=== PATIENT | female | born 1995 | race Caucasian/White ===

== ENCOUNTER 2019-07-10 18:12 | Emergency (ER) | payer MEDICAID ==
[2019-07-10 19:04] LABS: Influenza A Molecular POSITIVE (Negative)
--- NOTE | 2019-07-10 19:46 | ED ---
Influenza-Like Illness - HPI Summary HPI Summary: 24-year-old female with a past medical history presents to the emergency department today complaining of 5 days of fever, chills, nausea, vomiting, nasal congestion, cough. Patient states she has had decreased by mouth intake due to her symptoms the last 5 days. She denies recent travel outside the [facility]. Patient otherwise feels well and denies abdominal pain, rash, diarrhea. - History of Current Complaint Chief Complaint: EDFluSymptoms Time Seen by Provider: 07/10/19 19:27 Hx Obtained From: Patient Onset/Duration: Gradual Onset Severity: Moderate Associated Signs & Symptoms: Fever, Myalgia, Cough, Sore Throat, Nasal Congestion Related Hx: Possible Flu/Infectious Exposure - Allergy/Home Medications Allergies/Adverse Reactions: Allergies Allergy/AdvReac Type Severity Reaction Status Date / Time No Known Allergies Allergy Verified 07/10/19 18:39 Home Medications: Home Medications Acetaminophen [Acetaminophen Extra Strength] 500 mg PO BID PRN 04/12/18 [ History Confirmed 05/13/18] Levonorgestrel (Iud) [Mirena IUD] 04/12/18 [History] Biotin [Biotin Gummies] 1,000 mcg PO QPM 05/13/18 [History Confirmed 05/13/18] PMH/Surg Hx/FS Hx/Imm Hx Cardiovascular History: Reports: Hx Syncope - states she has "passed out" X2 in the past year Denies: Hx Pacemaker/ICD History: Reports: Hx Kidney Infection - 3 YEARS AGO, Other Problems/ Disorders - admitted for flank pain and dysuria Sensory History: Denies: Hx Contacts or Glasses, Hx Hearing Aid Opthamlomology History: Denies: Hx Contacts or Glasses Neurological History: Denies: Other Neuro Impairments/Disorders Psychiatric History: Reports: Hx Anxiety - HX OF, Hx Depression - HX OF Denies: Hx Eating Disorder, Hx of Violent Episodes Against Others - Surgical History Surgery Procedure, Year, and Place: bilateral ear tubes inserted at age 6. 2015 - Hx Anesthesia Reactions: No - Immunization History Date of Tetanus Vaccine: utd Date of Influenza Vaccine: unk Infectious Disease History: No Infectious Disease History: Denies: Traveled Outside the [place] in Last 30 Days - Social History Alcohol Use: Rare Alcohol Amount: social Substance Use Type: Reports: Marijuana Substance Use Comment - Amount & Last Used: pt reports last use > 1 month ago Smoking Status (MU): Light Every Day Tobacco Smoker Type: Cigarettes Amount Used/How Often: <1/2 PPD X 6 YEARS Have You Smoked in the Last Year: Yes Review of Systems Positive: Fever Eyes: Negative ENT: Negative Positive: Nasal Discharge Cardiovascular: Negative Positive: Cough Gastrointestinal: Negative Genitourinary: Negative Musculoskeletal: Negative Skin: Negative Neurological/Mental Status: Negative Psychological: Normal All Other Systems Reviewed And Are Negative: Yes Physical Exam Triage Information Reviewed: Yes Vital Signs On Initial Exam: Initial Vitals Temp Pulse Resp BP Pulse Ox 99 F 101 14 118/80 99 07/10/19 18:35 07/10/19 18:35 07/10/19 18:35 07/10/19 18:35 07/10/19 18:35 Vital Signs Reviewed: Yes Appearance: Positive: Well-Appearing, No Pain Distress, Well-Nourished Skin: Positive: Warm, Skin Color Reflects Adequate Perfusion Eyes: Positive: EOMI, DICKSON ENT: Positive: Hearing grossly normal Respiratory/Lung Sounds: Positive: Breath Sounds Present, Wheezes Cardiovascular: Positive: RRR, S1, S2 Abdomen Description: Positive: Nontender, Soft Bowel Sounds: Positive: Present Musculoskeletal: Positive: Strength/ROM Intact Neurological: Positive: Sensory/Motor Intact, Alert, Oriented to Person Place, Time, Normal Gait, Facial Symmetry, Speech Normal Psychiatric: Positive: Normal, Affect/Mood Appropriate AVPU Assessment: Alert Procedures - Sedation Patient Received Moderate/Deep Sedation with Procedure: No Diagnostics - Vital Signs Vital Signs Temp Pulse Resp BP Pulse Ox 07/10/19 18:35 99 F 101 14 118/80 99 - Laboratory Lab Results: Lab Results 07/10/19 Range/Units 18:40 Influenza A (Rapid) Positive H (Negative) Influenza B (Rapid) Not Reportable Result Diagrams: 07/10/19 20:03 07/10/19 20:03 Lab Statement: Any lab studies that have been ordered have been reviewed, and results considered in the medical decision making process. Flu Symptom Course/Dx - Course Course Of Treatment: Patient was evaluated in the emergency department today for a blood-like illness. Vitals noted. Patient given Tylenol for fever. Chest x-rays done that showed no evidence of pneumonia. Laboratory studies returned showing mild leukocytosis however there are no electrolyte abnormalities or evidence of anemia. Influenza serology positive for influenza A. Patient is outside window for Tamiflu treatment. Patient discharged with outpatient follow-up. - Diagnoses Differential Diagnosis/HQI/PQRI: Positive: Bronchitis, Influenza, Pneumonia, Upper Respiratory Infection Provider Diagnoses: Influenza A Discharge ED - Sign-Out/Discharge Documenting (check all that apply): Patient Departure - Discharge Plan Condition: Stable Disposition: HOME Patient Education Materials: Influenza (ED) Referrals: [facility] [Outside] - 3 Days No Primary Care Phys,NOPCP [Primary Care Provider] - Additional Instructions: You were seen in the emergency department today and diagnosed with influenza. This is an upper respiratory virus which causes cough, muscle aches, fever, nausea, trouble breathing. Viruses are self-limiting and will go away on their own. Be sure to stay hydrated and rest. You may take [id number] decongestants as needed for your symptoms as well as NyQuil at night to improve sleep. Take Tylenol every 6 hours as needed for fever. Please see your primary care physician in 5 days for further evaluation and management. Please do not return to work or school until 24 hours after your fever breaks. Please return to the emergency department immediately if you develop any new or worsening symptoms. - Billing Disposition and Condition Condition: STABLE Disposition: Home
[2019-07-10] MEDS ORDERED: Acetaminophen TAB* 325 MG PO ONE (19:49)
[2019-07-10 20:12] LABS: Hematocrit 46 % (35-47); Hemoglobin 15.6 g/dL (12.0-16.0); Mean Corpuscular HGB Conc 34 g/dL (31-36); Mean Corpuscular Hemoglobin 31 pg (27-31); Mean Corpuscular Volume 92 fL (80-97); Mean Platelet Volume 9.6 fL (7.4-10.4); Platelet Count 189 10^3/uL (150-450); Red Blood Count 4.99 10^6 /uL (3.70-4.87); Red Cell Distribution Width 13 % (10-15); White Blood Count 11.4 10^3/uL (3.5-10.8)
[2019-07-10 20:31] LABS: ALT 18 U/L (7-52); AST 25 U/L (13-39); Albumin 4.5 g/dL (3.2-5.2); Albumin/Globulin Ratio 1.2 (1-3); Alkaline Phosphatase 56 U/L (34-104); Anion Gap 15 mmol/L (2-11); BUN/Creatinine Ratio 24.6 (8-20); Blood Urea Nitrogen 17 mg/dL (6-24); C Reactive Protein 80.13 mg/L (<8.01); CO2 Carbon Dioxide 26 mmol/L (22-32); Chloride 89 mmol/L (101-111); EGFR African American 127.6 (>60); EGFR Non-African American 105.4 (>60); Globulin 3.8 g/dL (2-4); Glucose 96 mg/dL (70-100); Potassium 3.8 mmol/L (3.5-5.0); Sodium 130 mmol/L (135-145); Total Protein 8.3 g/dL (6.4-8.9)
[2019-07-10 20:37] LABS: ABS Basophils 0.1 10^3/ul (0-0.2); ABS Lymphocytes 1.8 10^3/ul (1.0-4.8); ABS Monocytes 1.9 10^3/ul (0-0.8); ABS Neutrophils 7.7 10^3/ul (1.5-7.7); HCG Pregnancy < 0.60 mIU/mL; Lymphocyte % 15.5 %
[2019-07-10 21:35] VITALS: BP 127/71
== END 2019-07-10 21:34 | disposition home or self-care (01) ==
LOC: ED 18:12
DX: J10.1 Influenza due to other identified influenza virus with other respiratory manifestations (principal); R50.9 Fever, unspecified; R05 Cough; J02.9 Acute pharyngitis, unspecified; R09.81 Nasal congestion; Z97.5 Presence of (intrauterine) contraceptive device; F17.210 Nicotine dependence, cigarettes, uncomplicated
CPT/HCPCS: 36415; 71046; 80053; 84702; 85025; 86140; 99282; A9270-GY

== ENCOUNTER 2022-04-21 14:38 | Observation (INO) ==
[2022-04-21] MEDS ORDERED: Albuterol 2.5mg/3 ml (0.083%) NEB.SOLN INH ONE (15:05)
[2022-04-21] MEDS ORDERED: Lactated Ringers 1000 ml BAG 1,000 ML IV ONE ×2 (15:05→17:30)
[2022-04-21] MEDS ORDERED: Magnesium Sulfate IV 1GM/100ML 1 GM/100 ML BAG IV ONE (15:06)
[2022-04-21 15:12] LABS: ABS Lymphocytes 1.4 10^3/ul (1.0-4.8); ABS Monocytes 1.2 10^3/ul (0-0.8); Hematocrit 49 % (35-47); Hemoglobin 16.5 g/dL (12.0-16.0); Lymphocyte % 13.1 %; Mean Corpuscular HGB Conc 34 g/dL (31-36); Mean Corpuscular Hemoglobin 32 pg (27-31); Mean Corpuscular Volume 93 fL (80-97); Mean Platelet Volume 9.2 fL (7.4-10.4); Platelet Count 225 10^3/uL (150-450); Red Blood Count 5.25 10^6 /uL (3.70-4.87); Red Cell Distribution Width 14 % (10-15); White Blood Count 10.6 10^3/uL (3.5-10.8)
[2022-04-21 15:34] LABS: High Sens Troponin Baseline 5 pg/mL (<15)
[2022-04-21 15:48] LABS: ALT 21 U/L (7-52); AST 32 U/L (13-39); Albumin 5.1 g/dL (3.2-5.2); Albumin/Globulin Ratio 1.6 (1-3); Alkaline Phosphatase 57 U/L (35-149); Anion Gap 14 mmol/L (2-11); Blood Urea Nitrogen 17 mg/dL (6-24); C Reactive Protein 87.72 mg/L (<8.01); CO2 Carbon Dioxide 24 mmol/L (22-32); Calcium 9.6 mg/dL (8.6-10.3); Chloride 96 mmol/L (101-111); Globulin 3.2 g/dL (2-4); Glucose 89 mg/dL (70-100); Potassium 4.3 mmol/L (3.5-5.0); Sodium 134 mmol/L (135-145); Total Protein 8.3 g/dL (6.4-8.9); eGFR CKD-EPI 104.8 (>60)
[2022-04-21 16:10] LABS: HCG Pregnancy < 0.60 mIU/mL
[2022-04-21 17:04] LABS: High Sensitivity Troponin 1 Hr 5 pg/mL (<15)
[2022-04-21] MEDS ORDERED: Iohexol 350 (CONTRAST) 500 ML MDV IV ONE (17:05)
[2022-04-21] MEDS ORDERED: Dexamethasone IV 4 MG/ML VIAL 1 ml VIAL IV SLOW PU ONE (17:29)
[2022-04-21] MEDS ORDERED: diazePAM INJ CARPUJECT 5 MG/ML SYRINGE IV ONE (17:29)
[2022-04-21] MEDS ORDERED: Piperacillin/Tazobac ADVAN 3.375 GM in NS 0.9% 100 ml BAG 100 ML IV ONE (17:51)
[2022-04-21] MEDS ORDERED: ZOSYN 3.375 GM Q8H per EXTENDED INFUSION IV SCH (22:00)
[2022-04-21] MEDS ORDERED: Enoxaparin 40 MG/0.4 ML SYR SUBCUT SCH (22:00)
[2022-04-21] MEDS ORDERED: Zosyn per Pharmacy NOTE FOLLOW UP SCH (22:00)
[2022-04-21] MEDS: Acetaminophen IV 1 GM/100ML 1,000 MG/100 ML BAG IV SCH (22:26)
[2022-04-21] MEDS: ZOSYN 3.375 GM Q8H per EXTENDED INFUSION IV SCH (23:50)
[2022-04-22 00:45] LABS: Urine Appearance Clear; Urine Bilirubin Negative (Negative); Urine Blood Trace (Intact) (Negative); Urine Color Straw; Urine Glucose Negative (Negative); Urine Ketones 3+ (80mg/dL) (Negative); Urine Nitrite Negative (Negative); Urine Protein Negative (Negative); Urine Urobilinogen 0.2 (Negative) (Negative); Urine pH 5.5 (5.0-9.0)
[2022-04-22] MEDS: Acetaminophen IV 1 GM/100ML 1,000 MG/100 ML BAG IV SCH (05:52)
[2022-04-22] MEDS: ZOSYN 3.375 GM Q8H per EXTENDED INFUSION IV SCH (06:26)
[2022-04-22 07:30] LABS: ABS Lymphocytes 0.8 10^3/ul (1.0-4.8); ABS Monocytes 0.7 10^3/ul (0-0.8); ABS Neutrophils 3.1 10^3/ul (1.5-7.7); Hematocrit 39 % (35-47); Lymphocyte % 16.8 %; Mean Corpuscular HGB Conc 34 g/dL (31-36); Mean Corpuscular Hemoglobin 31 pg (27-31); Mean Corpuscular Volume 92 fL (80-97); Mean Platelet Volume 9.1 fL (7.4-10.4); Nucleated Red Blood Cells % 0.1; Platelet Count 165 10^3/uL (150-450); Red Blood Count 4.19 10^6 /uL (3.70-4.87); Red Cell Distribution Width 14 % (10-15); White Blood Count 4.6 10^3/uL (3.5-10.8)
[2022-04-22 07:48] LABS: C Reactive Protein 50.48 mg/L (<8.01); Calcium 8.1 mg/dL (8.6-10.3); Magnesium 2.4 mg/dL (1.9-2.7); Potassium 4.3 mmol/L (3.5-5.0); eGFR CKD-EPI 132.1 (>60)
[2022-04-22] MEDS ORDERED: DOXYcycline 100 MG in NS 0.9% 250 ml 250 ML IVPB SCH ×2 (08:00→09:30)
[2022-04-22 10:57] VITALS: BP 130/78
== END 2022-04-22 14:00 | disposition home or self-care (01) ==
LOC: EDHOLD 14:38 → ED 14:38 → SUATTDRO 19:40 → MED 22:37
PROVIDERS: ADMIT Internal Medicine; ATTEND Hospitalist